=== PATIENT | male | born 1980 | race Two or more races ===

== ENCOUNTER 2020-02-17 11:46 | Emergency (ER) | payer MEDICAID ==
[~2020-02-17] VITALS: Ht 172.7 cm; Wt 90.7 kg
[2020-02-17 11:46] VITALS: BP 132/82
[2020-02-17] MEDS ORDERED: cefTRIAXone SOD 1,000 MG VL IM ONE (14:00)
[2020-02-17] MEDS ORDERED: HYDROcodone-ACET 5/325MG TAB PO ONE (14:15)
== END 2020-02-17 14:34 | disposition home or self-care (01) ==
LOC: ER 11:46
DX: S62.522A Displaced fracture of distal phalanx of left thumb, initial encounter for closed fracture (principal); S61.012A Laceration without foreign body of left thumb without damage to nail, initial encounter; W22.8XXA Striking against or struck by other objects, initial encounter; Y93.89 Activity, other specified; Y92.89 Other specified places as the place of occurrence of the external cause; Y99.8 Other external cause status
CPT/HCPCS: 12002; 29130; 73140; 96372; 99283; J0696; J2001